=== PATIENT | female | born 1965 | race Caucasian/White ===

== ENCOUNTER → 2019-02-06 | Outpatient (CLI) | payer SELFPAY ==
--- NOTE | 2019-02-06 17:10 | RADIOLOGY IMAGING REPORT ---
FACILITY: [facility] - [place] PATIENT NAME: Bettina Garcia : 1965 MR: [id number] V: [id number] EXAM DATE: ORDERING PHYSICIAN: KULDEEP JAMES TECHNOLOGIST: Location: [facility] - [place] Patient: Bettina Garcia : 1965 Visit/Account:[id number] Date of Sevice: 02/06/2019 EXAMINATION: MR SPINE LUMBAR W/O CON INDICATION: Radiculopathy COMPARISON: None available TECHNIQUE: Multiplane MR imaging was performed through the lumbar spine without contrast. FINDINGS: Vertebral bodies and posterior elements: Normal Conus position/signal: Normal Marrow signal: Degenerative edema surrounds the L1-2 and L4-5 disc spaces. Extraspinal structures including psoas muscles/paraspinal soft tissues: Normal L1-2: Mild left foraminal narrowing, otherwise normal. L2-3: Minimal disc bulge, no canal narrowing, mild bilateral foraminal narrowing. L3-4: Moderate left and mild to moderate right foraminal narrowing, otherwise normal. L4-5: Severe disc space degeneration. Grade 1 anterolisthesis of L4 on L5. Small disc protrusion. Moderate facet arthropathy and ligamentum flavum thickening. Right greater than left lateral recess narrowing and moderate canal narrowing. Severe bilateral foraminal narrowing. L5-S1: Minimal disc protrusion/extrusion. Mild facet arthropathy. No canal narrowing. Moderate to severe left and moderate right foraminal narrowing. IMPRESSION: 1. Severe L4-5 disc space degeneration. Grade 1 anterolisthesis of L4 on L5 secondary to moderate f acet arthropathy. 2. Moderate L4-5 canal narrowing secondary to the constellation of findings described above. 3. Multilevel foraminal narrowing most pronounced at L4-5 and L5-S1, see comments above. Report Dictated By: Jaden Saxena MD at 02/06/2019 5:00 PM Report E-Signed By: Jaden Saxena MD at 02/06/2019 5:05 PM WSN:[id number]
== END ==
LOC: MRI 00:20
DX: M51.36 Other intervertebral disc degeneration, lumbar region (principal)
CPT/HCPCS: 72148

== ENCOUNTER → 2019-03-08 | Outpatient (CLI) | payer SELFPAY ==
[2019-03-08 12:33] LABS: PLATELET COUNT, AUTOMATED 236 K/uL (150-450)
[2019-03-08 12:39] LABS: INR 0.93
--- NOTE | 2019-03-08 12:41 | EKG ---
FACILITY: [facility] PATIENT NAME: KD LAYNE : [id number] MR: [id number] V: [id number] EXAM DATE: ORDERING PHYSICIAN: MARTA MORALES TECHNOLOGIST: VICKY Test Reason : PRE OP Blood Pressure : / mmHG Vent. Rate : 062 BPM Atrial Rate : 062 BPM P-R Int : 144 ms QRS Dur : 084 ms QT Int : 418 ms P-R-T Axes : 057 096 020 degrees QTc Int : 424 ms Normal sinus rhythm Rightward axis Confirmed by Anuj rCuz ([id number]) on 03/08/2019 10:38:17 PM Referred By: CARMEN Confirmed By:Anuj Mustafa
== END ==
LOC: LAB 12:08
PROVIDERS: ATTEND Nurse Practitioner Family
DX: Z01.812 Encounter for preprocedural laboratory examination (principal); Z68.35 Body mass index [BMI] 35.0-35.9, adult
CPT/HCPCS: 36415; 82040; 82247; 82310; 82374; 82435; 82565; 82947; 83036; 84075; 84132; 84155; 84295; 84450; 84460; 84520; 85025; 85610; 85730; 86850; 86900; 86901; 93005